=== PATIENT | female | born 1980 | race Caucasian/White ===

== ENCOUNTER → 2023-05-16 | Emergency (ER) | payer OTHER ==
[~2023-05-16] MED LIST: HYDROCODONE/APAP 5/325 MG TAB ONE; IBUPROFEN 200 MG TAB PO ONE; IBUPROFEN 400 MG TAB ONE; TDAP (DIPHTH,PERTUSS(ACELL),TET VAC) 0.5 ML VIAL IMVAC ONE
--- NOTE | 2023-05-16 01:21 | EDPHYS ---
Physician Documentation [facility] Name: Zonia Roberts Age: 42 yrs Sex: Female : 1980 Arrival Date: 05/16/2023 Time: 00:45 Bed 16 Private MD: Scott Raya ED Physician Juan Ramírez HPI: 05/16 00:59 This 42 yrs old Female presents to ER via Wheelchair with complaints of Foot Injury, snw Foot Pain. 00:59 The patient presents with an injury, pain, that is acute, tenderness. The complaints snw affect the lateral aspect of left foot. Context: The problem was sustained outdoors, resulted from a mis-step, on a curb, the patient can partially bear weight, Problem is a result from a previous injury: No. Onset: The symptoms/episode began/occurred suddenly, just prior to arrival. Treatment prior to arrival includes: no previous treatment. Severity of symptoms: At their worst the symptoms were moderate. It is unknown whether or not the patient has had similar symptoms in the past. It is unknown whether or not the patient has recently seen a physician. Historical: - Allergies: 00:58 Latex, Natural Rubber; jb4 00:58 Banana; jb4 00:58 Kiwi (Actinidia Chinensis); jb4 00:58 [place]; jb4 00:58 [place] stat 7; jb4 00:58 [place]; jb4 - PMHx: 00:58 DM; jb4 - PSHx: 00:58 Hysterectomy; Tonsillectomy; jb4 - Immunization history:: Adult Immunizations not up to date. - Social history:: Smoking status: Reported history of juuling and/or vaping. ROS: 00:58 Constitutional: Negative for fever, chills, and weight loss, Eyes: Negative for injury, snw pain, redness, and discharge, ENT: Negative for injury, pain, and discharge, Neck: Negative for injury, pain, and swelling, Cardiovascular: Negative for chest pain, palpitations, and edema, Respiratory: Negative for shortness of breath, cough, wheezing, and pleuritic chest pain, Abdomen/GI: Negative for abdominal pain, nausea, vomiting, diarrhea, and constipation, Back: Negative for injury and pain, : Negative for injury, bleeding, discharge, and swelling, Skin: Negative for injury, rash, and discoloration, Neuro: Negative for headache, weakness, numbness, tingling, and seizure, Psych: Negative for depression, anxiety, suicide ideation, homicidal ideation, and hallucinations, 00:58 MS/extremity: Positive for injury or acute deformity, decreased range of motion, pain, tenderness, of the lateral side of left foot, Exam: 00:57 Constitutional: This is a well developed, well nourished patient who is awake, alert, snw and in no acute distress. Head/Face: Normocephalic, atraumatic. Eyes: Pupils equal round and reactive to light, extra-ocular motions intact. Lids and lashes normal. Conjunctiva and sclera are non-icteric and not injected. Cornea within normal limits. Periorbital areas with no swelling, redness, or edema. ENT: Nares patent. No nasal discharge, no septal abnormalities noted. Tympanic membranes are normal and external auditory canals are clear. Oropharynx with no redness, swelling, or masses, exudates, or evidence of obstruction, uvula midline. Mucous membranes moist. Neck: Trachea midline, no thyromegaly or masses palpated, and no cervical lymphadenopathy. Supple, full range of motion without nuchal rigidity, or vertebral point tenderness. No Meningismus. Chest/axilla: Normal chest wall appearance and motion. Nontender with no deformity. No lesions are appreciated. Cardiovascular: Regular rate and rhythm with a normal S1 and S2. No gallops, murmurs, or rubs. Normal PMI, no JVD. No pulse deficits. Respiratory: Lungs have equal breath sounds bilaterally, clear to auscultation and percussion. No rales, rhonchi or wheezes noted. No increased work of breathing, no retractions or nasal flaring. Abdomen/GI: Soft, non-tender, with normal bowel sounds. No distension or tympany. No guarding or rebound. No evidence of tenderness throughout. Back: No spinal tenderness. No costovertebral tenderness. Full range of motion. Neuro: Awake and alert, GCS 15, oriented to person, place, time, and situation. Cranial nerves II-XII grossly intact. Motor strength 5/5 in all extremities. Sensory grossly intact. Cerebellar exam normal. Normal gait. Psych: Awake, alert, with orientation to person, place and time. Behavior, mood, and affect are within normal limits. 00:57 Skin: Appearance: normal except for affected area, PAD, varicose veins, injury, contusion(s), that are deep, of the lateral side of left foot, 00:58 Skin: abrasion to hand and knee, no active bleeding. snw Vital Signs: 00:56 BP 154 / 94; Pulse 78; Resp 16; Temp 97.2(TE); Pulse Ox 99% on R/A; Weight 172.37 kg jb4 (R); Height 5 ft. 6 in. (R); Pain 0/10; 00:56 Body Mass Index 61.33 (172.37 kg, 167.64 cm) jb4 00:56 Pain Scale: Adult jb4 MDM: 01:05 Patient medically screened. ms3 01:21 Differential diagnosis: dislocation, closed fracture, contusion. Data reviewed: vital snw signs, nurses notes, radiologic studies, plain films. I considered the following discharge prescriptions or medication management in the emergency department Medications were administered in the Emergency Department. See MAR. Counseling: I had a detailed discussion with the patient and/or guardian regarding the historical points, exam findings, and any diagnostic results supporting the discharge/admit diagnosis, radiology results, the need for outpatient follow up, for definitive care, to return to the emergency department if symptoms worsen or persist or if there are any questions or concerns that arise at home. Special discussion: I have referred the patient to see his PCP for further evaluation of high blood pressure. Based on the history and exam findings, there is no indication for further emergent testing or inpatient evaluation. I discussed with the patient/guardian the need to see the orthopedic surgeon for further evaluation of the symptoms. I discussed with the patient/guardian the need to see the primary care provider for further evaluation of the symptoms. 01 00:56 Order name: Foot Left 3 View XRAY snw 05/16 00:57 Order name: Walking boot; Complete Time: 01:34 snw Administered Medications: 01:15 Drug: Boostrix Tdap IM 0.5 ml IM once; as a single dose Route: IM; Site: left deltoid; pf1 01:35 Follow up: Response: No adverse reaction; Marked relief of symptoms pf1 01:30 Drug: Ibuprofen PO 600 mg PO once Route: PO; pf1 01:45 Follow up: Response: No adverse reaction pf1 01:32 Not Given (Other Intervention Used): hydrocodone-acetaminophen5 mg-325 mg 1 tabs PO oncesnw Disposition: 03:47 I was immediately available on-site in the Emergency Department for consultation in the ms3 care of the patient. Disposition Summary: 05/16/23 01:21 Discharge Ordered Notes: Location: Home snw Condition: Stable snw Diagnosis - Sprain of foot snw - Fall on same level from slipping, tripping and stumbling with subsequent striking snw against object Followup: snw - With: Emergency Department - When: As needed - Reason: Worsening of condition Followup: snw - With: Scott Raya DO - When: 2 - 3 days - Reason: Recheck today's complaints, Continuance of care, Re-evaluation by your physician Discharge Instructions: - Discharge Summary Sheet snw - Foot Sprain snw - Fall Prevention in the Home, Adult snw - RICE Therapy for Routine Care of Injuries snw - Walking Boot, Adult snw Forms: - Work release form snw - Medication Reconciliation Form snw - Thank You Letter snw - Antibiotic Education snw - Prescription Opioid Use snw - Patient Portal Instructions snw - Leadership Thank You Letter snw Prescriptions: - Mobic 7.5 mg Oral Tablet - take 1 tablet ORAL route once daily take with food; 20 tablet; Refills: 0, snw Product Selection Permitted Signatures: Dispatcher [employer] EDND Elena Schultz, FERNANDO-C AUTOMOTIVE INSTRUCTOR-Csnw Eric Knight RN RN jb4 Juan Ramírez DO DO ms3 Iza Lomax RN RN pf1 Corrections: (The following items were deleted from the chart) 00:59 00:57 Constitutional: This is a well developed, well nourished patient who is awake, snw alert, and in no acute distress. Head/Face: Normocephalic, atraumatic. Eyes: Pupils equal round and reactive to light, extra-ocular motions intact. Lids and lashes normal. Conjunctiva and sclera are non-icteric and not injected. Cornea within normal limits. Periorbital areas with no swelling, redness, or edema. ENT: Nares patent. No nasal discharge, no septal abnormalities noted. Tympanic membranes are normal and external auditory canals are clear. Oropharynx with no redness, swelling, or masses, exudates, or evidence of obstruction, uvula midline. Mucous membranes moist. Neck: Trachea midline, no thyromegaly or masses palpated, and no cervical lymphadenopathy. Supple, full range of motion without nuchal rigidity, or vertebral point tenderness. No Meningismus. Chest/axilla: Normal chest wall appearance and motion. Nontender with no deformity. No lesions are appreciated. Cardiovascular: Regular rate and rhythm with a normal S1 and S2. No gallops, murmurs, or rubs. Normal PMI, no JVD. No pulse deficits. Respiratory: Lungs have equal breath sounds bilaterally, clear to auscultation and percussion. No rales, rhonchi or wheezes noted. No increased work of breathing, no retractions or nasal flaring. Abdomen/GI: Soft, non-tender, with normal bowel sounds. No distension or tympany. No guarding or rebound. No evidence of tenderness throughout. Back: No spinal tenderness. No costovertebral tenderness. Full range of motion. Neuro: Awake and alert, GCS 15, oriented to person, place, time, and situation. Cranial nerves II-XII grossly intact. Motor strength 5/5 in all extremities. Sensory grossly intact. Cerebellar exam normal. Normal gait. Psych: Awake, alert, with orientation to person, place and time. Behavior, mood, and affect are within normal limits. snw
--- NOTE | 2023-05-16 01:21 | ER ---
Nurse's Notes [facility] Name: Zonia Roberts Age: 42 yrs Sex: Female : 1980 Arrival Date: 05/16/2023 Time: 00:45 Bed 16 Private MD: Scott Raya Diagnosis: Sprain of foot;Fall on same level from slipping, tripping and stumbling with subsequent striking against object Presentation: 05/16 00:56 Chief complaint: Patient states: I was walking from my car to my house around 1730 and jb4 I tripped and fell on the side walk. I injured my left foot. Coronavirus screen: At this time, the client does not indicate any symptoms associated with coronavirus-19. Ebola Screen: No symptoms or risks identified at this time. Initial Sepsis Screen: Does the patient meet any 2 criteria? No. Patient's initial sepsis screen is negative. Does the patient have a suspected source of infection? No. Patient's initial sepsis screen is negative. Risk Assessment: Do you want to hurt yourself or someone else? Patient reports no desire to harm self or others. Onset of symptoms was May 16, 2023. Transition of care: patient was not received from another setting of care. 00:56 Method Of Arrival: Wheelchair jb4 00:56 Acuity: JOSE ALBERTO 4 jb4 Historical: - Allergies: 00:58 Latex, Natural Rubber; jb4 00:58 Banana; jb4 00:58 Kiwi (Actinidia Chinensis); jb4 00:58 [place]; jb4 00:58 [place] stat 7; jb4 00:58 [place]; jb4 - PMHx: 00:58 DM; jb4 - PSHx: 00:58 Hysterectomy; Tonsillectomy; jb4 - Immunization history:: Adult Immunizations not up to date. - Social history:: Smoking status: Reported history of juuling and/or vaping. Screenin:00 [facility] ED Fall Risk Assessment (Adult) History of falling in the last 3 months, pf1 including since admission Yes- single mechanical fall (1 pt) Confusion or Disorientation No (0 pts) Intoxicated or Sedated No (0 pts) Impaired Gait Yes (1 pt) Mobility Assist Device Used No (0 pt) Altered Elimination No (0 pt) Score/Fall Risk Level 0 - 2 = Low Risk Oriented to surroundings, Maintained a safe environment, Educated pt \T\ family on fall prevention, incl call for assistance when getting out of bed, Assessed \T\ reinforced patient's understanding of fall precautions, Provided non-skid footwear, Hourly rounding (assess needs \T\ fall precautionary measures) done, Used ambulatory aids as needed (educated on \T\ assisted with), Used gait belt as appropriate. 01:00 Abuse screen: Denies threats or abuse. Nutritional screening: No deficits noted. pf1 Tuberculosis screening: No symptoms or risk factors identified. Assessment: 01:00 General: Appears in no apparent distress. comfortable, obese, well developed, Behavior pf1 is calm, cooperative, appropriate for age, quiet. 01:00 Pain: Complains of pain in left foot Pain currently is 8 out of 10 on a pain scale. pf1 Neuro: No deficits noted. Level of Consciousness is awake, alert, obeys commands, Oriented to person, place, time, situation. Cardiovascular: No deficits noted. Capillary refill < 3 seconds Patient's skin is warm and dry. Respiratory: No deficits noted. Airway is patent Respiratory effort is even, unlabored, Respiratory pattern is regular, symmetrical. GI: No deficits noted. No signs and/or symptoms were reported involving the gastrointestinal system. : No deficits noted. No signs and/or symptoms were reported regarding the genitourinary system. EENT: No deficits noted. No signs and/or symptoms were reported regarding the EENT system. Musculoskeletal: Reports pain in left foot. Vital Signs: 00:56 BP 154 / 94; Pulse 78; Resp 16; Temp 97.2(TE); Pulse Ox 99% on R/A; Weight 172.37 kg jb4 (R); Height 5 ft. 6 in. (R); Pain 0/10; 00:56 Body Mass Index 61.33 (172.37 kg, 167.64 cm) jb4 00:56 Pain Scale: Adult jb4 ED Course: 00:51 Patient arrived in ED. gm2 00:52 Juan Ramírez DO is Attending Physician. ms3 00:52 Scott Raya DO is Private Physician. gm2 00:58 Triage completed. jb4 00:58 Arm band placed on right wrist. jb4 01:00 Patient has correct armband on for positive identification. Bed in low position. Call pf1 light in reach. 01:14 Iza Lomax, RN is Primary Nurse. pf1 01:19 Foot Left 3 View XRAY In Process Unspecified. EDMS 01:20 Scott Raya DO is Referral Physician. snw 01:35 walking boot applied to left foot. pf1 01:35 Patient did not have IV access during this emergency room visit. pf1 01:44 Provided Education on: follow up and prescription. pf1 01:44 No provider procedures requiring assistance completed. pf1 Administered Medications: 01:15 Drug: Boostrix Tdap IM 0.5 ml IM once; as a single dose Route: IM; Site: left deltoid; pf1 01:35 Follow up: Response: No adverse reaction; Marked relief of symptoms pf1 01:30 Drug: Ibuprofen PO 600 mg PO once Route: PO; pf1 01:45 Follow up: Response: No adverse reaction pf1 01:32 Not Given (Other Intervention Used): hydrocodone-acetaminophen5 mg-325 mg 1 tabs PO oncesnw Medication: 01:35 VIS not applicable for this client. pf1 Outcome: 01:21 Discharge ordered by MD. snw 01:44 Discharged to home ambulatory, with family, pf1 01:44 Condition: stable 01:44 Discharge instructions given to patient, family, Instructed on discharge instructions, follow up and referral plans. Demonstrated understanding of instructions, follow-up care, medications, Prescriptions given X 1, 01:44 Patient left the ED. pf1 Signatures: Dispatcher [employer] EDAR Elena Schultz, PACKING AND FINAL ASSEMBLY SUPERVISOR-C PACKING AND FINAL ASSEMBLY SUPERVISOR-Csnw Eric Knight, RN RN jb4 Juan Ramírez DO DO ms3 Iza Lomax, RN RN pf1 [place] Arredondo gm2
[2023-05-16 03:51] VITALS: BP 154/94; TEMP 97.2; O2SAT 99
--- NOTE | 2023-05-16 20:49 | RAD REPORT ---
EXAM DESCRIPTION: RAD - Foot Left 3 View - 05/16/2023 1:18 am CLINICAL HISTORY: Pain;Smash injury COMPARISON: None. TECHNIQUE: XR FOOT 3 OR MORE VIEWS LEFT 05/16/2023 12:56 AM HEEL ROOM SUPERVISOR FINDINGS: There is no fracture. Joint spaces are preserved. There is mild diffuse soft tissue swel ling. There is a large calcaneal spur. IMPRESSION: No acute osseous findings. Electronically signed by: Farzad Owens MD 05/16/2023 01:43 AM HEEL ROOM SUPERVISOR Due to temporary technical issues with the PACS/Fluency reporting system, reports are being signed by the in house radiologists without review as a courtesy to insure prompt reporting. The interpreting radiologist is fully responsible for the content of the report.
== END ==
LOC: ER 00:45
DX: S93.602A Unspecified sprain of left foot, initial encounter (principal); W01.198A Fall on same level from slipping, tripping and stumbling with subsequent striking against other object, initial encounter
CPT/HCPCS: 96372; 99284